=== PATIENT | female | born 1975 | race African-American/Black ===

== ENCOUNTER 2017-06-25 07:38 | Emergency (ER) | payer MEDICAID ==
[~2017-06-25 07:38] MED LIST: AMLO5TAB22 PO; FLUC150T PO; METR-1 PO
[2017-06-25 07:44] VITALS: BP 257/128; PULSE 75; RESP 17; TEMP 97.9; O2SAT 98
--- NOTE | 2017-06-25 08:00 | PD ---
HPI Chief Complaint: hypertension Time Seen by Provider: 07:58 Travel History International Travel<30 days: No Contact w/Intl Traveler<30days: No Traveled to known affect area: No History of Present Illness HPI 41-year-old female came to the emergency room with history of high blood pressure and some dizziness. Patient says that yesterday she was at her class when her instructor took her blood pressure and it was more than 200. She has been feeling some headache and dizziness. This morning when the symptoms continued she decided to come to the emergency room. Her blood pressure in triage was close to 240 systolic. No history of blurred vision, chest pain, shortness of breath or any other symptoms. Patient does have history of hypertension that she was diagnosed about 9 months ago by her primary care doctor. She was started on 2 medications and she does not recall the names. Patient took it for 6 weeks and then stopped since her primary care did not take her insurance anymore. She is awake and answering questions appropriately. [facility] Past Medical History Narrative Medical List of her past medical, surgical, social and family history is reviewed from the nursing note. Diminished Hearing: No Hypertension: Yes : 4 Para: 3 Miscarriage: 1 Tubal Ligation: Yes Past Surgical History Section: Yes (x2) Social History Alcohol Use: Yes (OCCASSIONAL WINE) Tobacco Use: Yes (5-6 CIG DAILY) Substance Use: No Allergies-Medications (Allergen,Severity, Reaction): Coded Allergies: No Known Allergies (Verified Adverse Reaction, Unknown, 06/25/17) Comments No known drug allergies. Reported Meds & Prescriptions Reported Meds & Active Scripts Active Clonidine (Clonidine HCl) 0.1 Mg Tab 0.1 Mg PO BID PRN Lisinopril-Hctz 10-12.5 Mg Tab 1 Tab PO DAILY Narrative Medication List of her home medications reviewed from the nursing note. Review of Systems Except as stated in HPI: all other systems reviewed are Neg Neurologic: Positive: Dizziness Physical Exam Narrative GENERAL: Awake, alert, mild distress SKIN: Focused skin assessment warm/dry. HEAD: Atraumatic. Normocephalic. EYES: Pupils equal and round. No scleral icterus. No injection or drainage. ENT: No nasal bleeding or discharge. Mucous membranes pink and moist. NECK: Trachea midline. No JVD. CARDIOVASCULAR: Regular rate and rhythm. No murmur appreciated. RESPIRATORY: No accessory muscle use. Clear to auscultation. Breath sounds equal bilaterally. GASTROINTESTINAL: Abdomen soft, non-tender, nondistended. Hepatic and splenic margins not palpable. MUSCULOSKELETAL: No obvious deformities. No clubbing. No cyanosis. No edema. NEUROLOGICAL: Awake and alert. No obvious cranial nerve deficits. Motor grossly within normal limits. Normal speech. PSYCHIATRIC: Appropriate mood and affect; insight and judgment normal. Data Data Last Documented VS Orders Orders Complete Blood Count With Diff (06/25/17 08:07) Basic Metabolic Panel (Bmp) (06/25/17 08:07) Clonidine (Catapres) (06/25/17 08:15) Lisinopril (Prinivil) (06/25/17 08:15) Hydrochlorothiazide (Hydrodiuril) (06/25/17 08:15) Electrocardiogram (06/25/17 ) Ed Discharge Order (06/25/17 10:30) Labs Laboratory Tests Test 06/25/17 08:25 06/25/17 09:15 White Blood Count 7.3 TH/MM3 Red Blood Count 4.57 MIL/MM3 Hemoglobin 14.1 GM/DL Hematocrit 41.8 % Mean Corpuscular Volume 91.5 FL Mean Corpuscular Hemoglobin 30.8 PG Mean Corpuscular Hemoglobin Concent 33.7 % Red Cell Distribution Width 14.4 % Platelet Count 137 TH/MM3 Mean Platelet Volume 10.9 FL Neutrophils (%) (Auto) 66.8 % Lymphocytes (%) (Auto) 22.3 % Monocytes (%) (Auto) 6.5 % Eosinophils (%) (Auto) 3.7 % Basophils (%) (Auto) 0.7 % Neutrophils # (Auto) 4.9 TH/MM3 Lymphocytes # (Auto) 1.6 TH/MM3 Monocytes # (Auto) 0.5 TH/MM3 Eosinophils # (Auto) 0.3 TH/MM3 Basophils # (Auto) 0.0 TH/MM3 CBC Comment DIFF FINAL Differential Comment Blood Urea Nitrogen 10 MG/DL Creatinine 0.71 MG/DL Random Glucose 95 MG/DL Calcium Level 8.4 MG/DL Sodium Level 137 MEQ/L Potassium Level 3.9 MEQ/L Chloride Level 107 MEQ/L Carbon Dioxide Level 25.1 MEQ/L Anion Gap 5 MEQ/L Estimat Glomerular Filtration Rate 109 ML/MIN MDM Medical Decision Making Medical Screen Exam Complete: Yes Emergency Medical Condition: Yes Medical Record Reviewed: Yes Interpretation(s) Twelve-lead EKG was reviewed by me. Normal sinus rhythm, left axis deviation, LVH by voltage criteria, and the strain. Heart rate of 61 bpm. Differential Diagnosis Uncontrolled essential hypertension, hypertensive crisis Narrative Course 9:49 AM patient was given by mouth clonidine, by mouth lisinopril and Hydrochlorothiazide. Current blood pressure is 196 systolic. 10:31 AM current blood pressure is 175 systolic. Patient will be discharged home on prescriptions. Critical Care Narrative Aggregate critical care time was 30 minutes. Time to perform other separately billable procedures was not included in the critical care time. My time did not include minutes spent treating any other patients simultaneously or on activities that did not directly contribute to the patient's treatment. The services I provided to this patient were to treat and/or prevent clinically significant deterioration that could result in: Hypertensive crisis, hypertensive crisis management I provided critical care services requiring my management, as noted below: Chart data review, documentation time, medication orders and management, vital sign assessments/reviewing monitor data, ordering and reviewing lab tests, ordering and interpreting/reviewing x-rays and diagnostic studies, care of the patient and discussion of the patient with the admitting physicians. Procedures EKG Prior to Arrival: No Diagnosis Primary Impression: Hypertensive crisis Additional Impression: Noncompliance with medication regimen Referrals: [facility] Additional Instructions: Please go to the walk-in clinic who is name and number been given to you on the discharge instructions. Please get the prescriptions filled and take the medication as per the prescription direction. Make sure to eat at least 1-2 bananas a day along with orange juice to keep her potassium level high. Med/Other Pt SpecificInfo: Prescription(s) given Scripts Clonidine (Clonidine) 0.1 Mg Tab 0.1 MG PO BID Y for SBP> OR = 180, DBP> OR = 100, #30 TAB 0 Refills Prov: Patricia Tmaez MD 06/25/17 Lisinopril-Hctz (Lisinopril-Hctz) 10-12.5 Mg Tab 1 TAB PO DAILY for Blood Pressure Management, #30 TAB 0 Refills Prov: Patricia Tamez MD 06/25/17 Disposition: 01 DISCHARGE HOME Condition: Stable Patricia Tamez MD Jun 25, 2017 08:00
[2017-06-25 08:04] VITALS: BP 245/129; PULSE 70; RESP 18; O2SAT 99
[2017-06-25] MEDS ORDERED: cloNIDine HCL 0.2 MG TAB PO ONE (08:15)
[2017-06-25] MEDS ORDERED: LISINOPRIL 10 MG TAB PO ONE (08:15)
[2017-06-25] MEDS ORDERED: HYDROCHLOROTHIAZIDE 25 MG TAB PO ONE (08:15)
[2017-06-25 08:45] VITALS: BP 233/126; PULSE 62; RESP 18; O2SAT 98
[2017-06-25 08:57] LABS: AUTOMATED NEUTROPHIL # 4.9 TH/MM3 (1.8-7.7); BASOPHIL % 0.7 % (0.0-2.0); EOSINOPHIL # 0.3 TH/MM3 (0-0.4); EOSINOPHIL % 3.7 % (0.0-4.0); HEMATOCRIT 41.8 % (35.0-46.0); HEMO FLAGS DIFF FINAL; LYMPH % 22.3 % (9.0-44.0); LYMPHOCYTE # 1.6 TH/MM3 (1.0-4.8); MEAN CELL VOLUME 91.5 FL (80.0-100.0); MEAN CORPUSCULAR HEMOGLOBIN 30.8 PG (27.0-34.0); MEAN CORPUSCULAR HGB CONC 33.7 % (32.0-36.0); MONO % 6.5 % (0.0-8.0); NEUT % 66.8 % (16.0-70.0); PLATELET COUNT 137 TH/MM3 (150-450); RED BLOOD COUNT 4.57 MIL/MM3 (4.00-5.30); RED CELL DISTRIBUTION WIDTH 14.4 % (11.6-17.2); WHITE BLOOD COUNT 7.3 TH/MM3 (4.0-11.0)
[2017-06-25 09:20] VITALS: BP 196/99; PULSE 62; RESP 18; O2SAT 99
[2017-06-25 10:03] LABS: BICARBONATE 25.1 MEQ/L (21.0-32.0); POTASSIUM 3.9 MEQ/L (3.5-5.1)
[2017-06-25 10:25] VITALS: BP 174/88; PULSE 58; RESP 18; O2SAT 99
[2017-06-25] MEDS ORDERED: LISI10TA PO (10:32)
[2017-06-25] MEDS ORDERED: CLON0.1T PO (10:32)
[2017-06-25 11:33] VITALS: BP 162/93
--- NOTE | 2017-06-25 16:48 | EKG ---
Date Performed: 06/25/2017 Time Performed: 08:57:31 PTAGE: 41 years EKG: Sinus rhythm POSSIBLE LEFT ATRIAL ENLARGEMENT LEFT VENTRICULAR HYPERTROPHY AND ST-T CHANGE. When compared topre ous tracing, the patient has new T wave Inversions. Clinical corralation suggested. ABNORMAL ECG PREVIOUS TRACING : 07/20/2004 11.45 DOCTOR: Meena Schwartz Interpretating Date/Time 06/25/2017 16:47:37
== END 2017-06-25 11:34 | disposition home or self-care (01) ==
LOC: NEPC 07:38
DX: I16.9 Hypertensive crisis, unspecified (principal); I10 Essential (primary) hypertension; F17.210 Nicotine dependence, cigarettes, uncomplicated; Z91.14 Patient's other noncompliance with medication regimen
CPT/HCPCS: 80048; 85025; 93005; 99285